=== PATIENT | female | born 1970 | race American Indian/Alaskan Native ===

== ENCOUNTER 2022-03-16 12:56 | Emergency (ER) | payer BC ==
[2022-03-16] MEDS ORDERED: HYDROcodone/ACETAMINOPHEN 5-325 MG TAB PO ONE (15:15)
--- NOTE | 2022-03-16 15:21 | Emergency Department Report ---
ED Back Pain/Injury HPI - General Chief Complaint: Fall Stated Complaint: FALL Time Seen by Provider: 03/16/22 15:13 Source: patient, EMS Limitations: No Limitations - History of Present Illness Initial Comments: 51-year-old female with no significant past medical history reports falling out of a golf cart today and landing on her buttocks. Patient reports right-sided lower back pain, denies any or GI symptoms. No saddle anesthesia, no lower extremity numbness or tingling. Patient denies any other acute symptoms at this moment. MD Complaint: back injury, fall -: Sudden Severity scale (0 -10): 8 Associated Symptoms: denies other symptoms. denies: weakness, difficulty walking, nausea/vomiting - Related Data Previous Rx's Medication Instructions Recorded Last Taken Type Ibuprofen [Motrin] 800 mg PO Q8HR PRN 7 Days #21 03/16/22 Unknown Rx tablet methOCARBAMOL [Robaxin TAB] 500 mg PO Q8HR PRN 7 Days #21 tab 03/16/22 Unknown Rx oxyCODONE /ACETAMINOPHEN [Percocet 1 tab PO Q6HR PRN 3 Days #12 tablet 03/16/22 Unknown Rx 5/325] Allergies Allergy/AdvReac Type Severity Reaction Status Date / Time No Known Allergies Allergy Verified 03/16/22 12:58 ED Review of Systems ROS: Stated complaint: FALL Other details as noted in HPI Comment: All other systems reviewed and negative Constitutional: denies: chills, fever Eyes: denies: eye pain, eye discharge, vision change ENT: denies: ear pain, throat pain Respiratory: denies: cough, shortness of breath, wheezing Cardiovascular: denies: chest pain, palpitations Endocrine: no symptoms reported Gastrointestinal: denies: abdominal pain, nausea, diarrhea Genitourinary: denies: urgency, dysuria, discharge Musculoskeletal: back pain. denies: joint swelling, arthralgia Skin: denies: rash, lesions Neurological: denies: headache, weakness, paresthesias Psychiatric: denies: anxiety, depression Hematological/Lymphatic: denies: easy bleeding, easy bruising ED Past Medical Hx - Past Medical History Previous Medical History?: No - Medications Home Medications: Home Medications Medication Instructions Recorded Confirmed Last Taken Type Ibuprofen [Motrin] 800 mg PO Q8HR PRN 7 Days #21 03/16/22 Unknown Rx tablet methOCARBAMOL [Robaxin TAB] 500 mg PO Q8HR PRN 7 Days #21 tab 03/16/22 Unknown Rx oxyCODONE /ACETAMINOPHEN [Percocet 1 tab PO Q6HR PRN 3 Days #12 tablet 03/16/22 Unknown Rx 5/325] ED Physical Exam - General Limitations: No Limitations General appearance: alert, in no apparent distress - Head Head exam: Present: atraumatic, normocephalic - Eye Eye exam: Present: normal appearance - ENT ENT exam: Present: mucous membranes moist - Neck Neck exam: Present: normal inspection - Respiratory Respiratory exam: Present: normal lung sounds bilaterally. Absent: respiratory distress - Cardiovascular Cardiovascular Exam: Present: regular rate, normal rhythm. Absent: systolic murmur, diastolic murmur, rubs, gallop - GI/Abdominal GI/Abdominal exam: Present: soft, normal bowel sounds - Extremities Exam Extremities exam: Present: normal inspection - Back Exam Back exam: Present: normal inspection, tenderness (right lower back - no spinal tenderness noted. no bony tenderness noted. ) - Neurological Exam Neurological exam: Present: alert, oriented X3 - Psychiatric Psychiatric exam: Present: normal affect, normal mood - Skin Skin exam: Present: warm, dry, intact, normal color. Absent: rash ED Course Vital Signs 03/16/22 12:57 Pulse Rate 85 Blood Pressure 135/78 [Left] O2 Sat by Pulse 98 Oximetry ED Medical Decision Making - Medical Decision Making 51-year-old female with no significant past medical history reports falling out of a golf cart today and landing on her buttocks. Patient reports right-sided lower back pain, denies any or GI symptoms. No saddle anesthesia, no lower extremity numbness or tingling. Patient denies any other acute symptoms at this moment. Lumbar x-ray ordered. Pain medicine ordered. Will review x-ray. Patient stable for discharge, will follow her primary care provider. Pain medicine is given to take home via prescription. Patient agrees with plan of care and verbalized understanding. Critical care attestation.: If time is entered above; I have spent that time in minutes in the direct care of this critically ill patient, excluding procedure time. ED Disposition Clinical Impression: Lumbar compression fracture Qualifiers: Encounter type: initial encounter Lumbar vertebra fracture level: L2 Qualified Code(s): S32.020A - Wedge compression fracture of second lumbar vertebra, initial encounter for closed fracture Disposition: 01 HOME / SELF CARE / HOMELESS Is pt being admited?: No Condition: Stable Instructions: Thoracic Spine Fracture, Spinal Compression Fracture, Thoracic Spine Fracture, [id number] Prescriptions: Ibuprofen [Motrin] 800 mg PO Q8HR PRN 7 Days #21 tablet PRN Reason: Pain, Moderate (4-6) oxyCODONE /ACETAMINOPHEN [Percocet 5/325] 1 tab PO Q6HR PRN 3 Days #12 tablet PRN Reason: Pain methOCARBAMOL [Robaxin TAB] 500 mg PO Q8HR PRN 7 Days #21 tab PRN Reason: Muscle Spasm Referrals: RICHARDSON BARNETT II, MD [Staff Physician] - LUIS ALBERTO (L2 compression FX with 10 to 20% loss in height ) Time of Disposition: 19:38 Print Language: LIBERIAN
[2022-03-16 20:28] VITALS: BP 132/71
== END 2022-03-16 20:38 | disposition home or self-care (01) ==
LOC: ED 12:56
DX: S32.009A Unspecified fracture of unspecified lumbar vertebra, initial encounter for closed fracture (principal); Z79.899 Other long term (current) drug therapy; W18.39XA Other fall on same level, initial encounter; Y93.89 Activity, other specified; Y92.89 Other specified places as the place of occurrence of the external cause; Y99.8 Other external cause status
CPT/HCPCS: 72100; 99283